=== PATIENT | female | born 2000 | race Caucasian/White ===

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

== ENCOUNTER 2020-04-02 07:22 | Inpatient (IN) ==
[2020-04-02] MEDS ORDERED: OXYTOCIN 30 UNITS/500 ML BAG IV PRN ×3 (07:37→18:59)
--- NOTE | 2020-04-02 07:56 | History & Physical Report ---
Date of Service April 02, 2020 Assessment & Plan (1) Encounter for induction of labor: Mary Kate is a 20yo at 40w 0d presenting for a planned post-dates IOL - admit to L&D - begin maintenance IV fluids - begin IV Pitocin drip - we will continue her Keppra 500mg, PO, BID - pain plan: epidural - anticipate vaginal delivery History of Present Illness Primary Care Provider: Gorge Valdovinos DO Mary Kate is a 20 yo at 40w 0d ( dated via U/S), here for planned post-dates IOL. Mary Kate developed a new onset seizure disorder at 24 weeks gestation, which was initially diagnosed at [facility]. She was started on Keppra 500mg, BID and has not had any recurrent seizures since the initial episode. Blood pressures, urine and all additional lab work-up was benign, thus her seizure were felt to not be consistent with pre-eclampsia. No other complications with this . Only other medication is PNV. She came to the labor and delivery last night, at which time she had a sharma balloon catheter was placed. It fell out shortly before coming to the unit this morning. She has been attending OB appointments. She is having occasional contractions. She is feeling movement. No vaginal bleeding. No fluid loss. Labs Blood type: A + Antibody Screen: neg H .6 Hct: 38.1 Plt: 132 Rubella: immune VDRL/RPR: non-reactive Gonorrhea: neg Chlamydia: neg GBS: neg HIV: non-reactive HbsAq: neg Glucose Tolerance x2: initial 50g test neg, second 50g test elevated Allergies Allergy/AdvReac Type Severity Reaction Status Date / Time sulfamethoxazole Allergy Verified 03/29/20 13:30 [From Bactrim] trimethoprim [From Bactrim] Allergy Verified 03/29/20 13:30 Home Medications Home Medications Medication Instructions Recorded Confirmed Type breast pump #1 ea 03/06/20 03/29/20 Rx levetiracetam [Keppra] 500 mg PO BID 04/01/20 04/02/20 History vit-iron fum-folic ac 1 tab PO DAILY 04/01/20 04/02/20 History [ Vitamin] Patient History Medical History Encounter for anatomic survey Seizure disorder during Stomach ulcer Varicella vaccine Surgical History S/P wisdom tooth extraction Family History Father Hypertension Liver disease Sister Kidney stone Mother Multiple gestation Social History Preferred Language: Citizen Of [place] Communication Ability: Effective Enologist Required: No Beliefs That Will Affect Care: None marital status: Single marital status details: CHERELLE English (23) [phone] Current Living Situation: Spouse current occupational status: student current occupation: student @ [employer] [place] Other Information That Helps Us Care for You: No Feels Safe at Home: Yes Safety Concerns: Feels Safe At This Time Smoking Status: Never smoker Do You Dip or Chew Tobacco: No ; Second Hand Exposure: No ; Tobacco Cessation Education Requested by Patient: No Hx Alcohol Use: No Hx Substance Use: No Review of Systems no fever, no chills and no sweats no worsening vision no cough and no dyspnea no chest pain, no palpitations and no calf pain no nausea, no vomiting, no constipation and no diarrhea/loose stools no dysuria and no urinary frequency Physical Exam Constitutional: WD/WN, vitals as above Eyes: + anicteric sclerae Neck: normal visual inspection Respiratory: normal respiratory effort, lungs clear to auscultation does not use accessory muscles Auscultation: no crackles, no rales, no wheezes and no pleural rub Cardiovascular: Rate/Rhythm: regular rate and regular rhythm Heart Sounds: normal S1 and normal S2; no gallop, no murmur and no cardiac rub Gastrointestinal (Abdomen): Gravid. Uterus at term; + heart tones; vertex position. EFW 6-7 lbs Neurologic: awake; no focal motor deficits Psychiatric: A+Ox3, euthymic affect Genitourinary: OB Exam Monitor Tracing: + external FHT monitor used Cervical Exam: 4 cm/75% effacement/-2 station, soft and posterior Results & Data Vital Signs (Past 12 Hours) Vital Signs Pulse BP 04/02/20 07:38 108 H 130/78 Monitoring External Monitor Baseline HR: 140 bpm Variability: moderate Accelerations: 2 in 20 min Decelerations: none Tocodynamometer Contractions: occurring irregularly on monitor Supervising Physician Co-Signing Physician Notes Patient evaluated and agree with the above findings and plan. Resident Activity Tracking Resident Involvement: Resident Care Provided Care Provided: Adult [facility] Medicine
[2020-04-02 07:58] LABS: Hematocrit (blood only) 38.1 % (37-47); Hemoglobin 12.6 g/dL (12.0-16.0); Mean Corpuscular Hemoglobin 31.3 pg (25-34); Mean Corpuscular Volume 94.8 fL (80-100); Mean Platelet Volume 11.7 fL (7.4-10.4); Platelet Count 132 K/uL (130-400); RDW Standard Deviation 48.7 fL (36.4-46.3); Red Blood Count 4.02 M/uL (4.2-5.4); White Blood Count 9.32 K/uL (4.8-10.8)
[2020-04-02 08:01] LABS: Mean Corpuscular Hgb Conc 33.1 g/dL (32-36)
[2020-04-02] MEDS: LACTATED RINGER'S 1,000 ML IV PRN ×3 (08:44→16:33)
[2020-04-02] MEDS: levETIRAcetam 500 MG TAB PO SCH ×2 (09:13→21:06)
[2020-04-02] MEDS ORDERED: ePHEDrine sulfate 50 MG/ML AMP ONE (10:46)
[2020-04-02] MEDS ORDERED: BUPIVACAINE 0.25% 30 ML VIAL ONE (10:46)
[2020-04-02] MEDS ORDERED: fentaNYL citrate 100 MCG/2 ML VIAL ONE (10:46)
[2020-04-02] MEDS ORDERED: fentaNYL 2MCG/ML ROPIV 1.25MG/ML 100 ML BAG EPI ONE (10:47)
[2020-04-02] MEDS ORDERED: fentaNYL 2MCG/ML ROPIV 1.25MG/ML 100 ML BAG EPI PRN (11:38)
[2020-04-02] MEDS ORDERED: NALBUPHINE HCL INJ 10 MG/ML AMP IV PRN (11:38)
[2020-04-02] MEDS ORDERED: DiphenhydrAMINE HCL 50 MG/ML VIAL IV PRN (11:38)
[2020-04-02] MEDS ORDERED: ePHEDrine sulfate 50 MG/ML AMP IV PRN (11:38)
[2020-04-02] MEDS ORDERED: ONDANSETRON INJ 2 MG/ML 2 ML VIAL IV PRN (11:38)
[2020-04-02] MEDS ORDERED: NALOXONE HCL 0.4 MG/1 ML VIAL/CARP IV PRN (11:38)
[2020-04-02] MEDS ORDERED: NALOXONE HCL 1 MG in SODIUM CHLORIDE 0.9% 1000ML 1,000 ML IV PRN (11:38)
--- NOTE | 2020-04-02 11:48 | Anesthesiology Consultation ---
Date of Service April 02, 2020 Assessment & Plan Chart Review Chart Review: Patient NOT seen in Pre Admission Testing and Acceptable Risk for Labor Epidural Consults Requested none ASA ASA2 Proposed Anesthesia Anesthesia Type: Labor Epidural and CSE Risk / Benefits Reviewed With: PT / POA / Parent / Guardian, Accepts Plan and Informed Consent Obtained History Height/Weight Height: 5 ft 2 in Weight: 79.832 kg Allergies Allergy/AdvReac Type Severity Reaction Status Date / Time sulfamethoxazole Allergy Verified 03/29/20 13:30 [From Bactrim] trimethoprim [From Bactrim] Allergy Verified 03/29/20 13:30 Medications Home Medications Medication Instructions Recorded Confirmed Last Taken breast pump #1 ea 03/06/20 03/29/20 Unknown levetiracetam [Keppra] 500 mg PO BID 04/01/20 04/02/20 04/01/20 21:00 vit-iron fum-folic ac 1 tab PO DAILY 04/01/20 04/02/20 04/01/20 21:00 [ Vitamin] Active Medications Generic Name Dose Route Start Last Admin Trade Name Dariuszq PRN Reason Stop Dose Admin Lactated Ringer's 1,000 mls @ 125 mls/hr 04/02/20 07:37 04/02/20 11:40 Lr IV 04/04/20 07:36 Infused .Q8H PRN Infusion L&D Protocol Protocol Oxytocin 30 units in 500 mls @ 6 mls/hr 04/02/20 07:41 04/02/20 10:15 Pitocin IV 04/04/20 07:40 0.36 units/hr .Q24H PRN 6 mls/hr Labor Induction/Augmentation Titration Protocol 0.36 UNITS/HR Levetiracetam 500 mg 04/02/20 09:00 04/02/20 09:13 Keppra PO 05/02/20 08:59 500 mg BID GIORGIO Administration NPO Date Last Intake of Fluids: 04/02/20 Time Last Intake of Fluids: 11:00 Date Last Intake of Solids: 04/02/20 Time Last Intake of Solids: 09:00 Past Medical History Medical History Encounter for anatomic survey Seizure disorder during Stomach ulcer Varicella vaccine Exercise / Class Metabolic Activity II 4-5 Yardwork/Stairs/Walk up hill Past Family History Family History Father Hypertension Liver disease Sister Kidney stone Mother Multiple gestation Past Surgical History Surgical History S/P wisdom tooth extraction Past Anesthesia History No Hx of Anesthesia Complications and No Family Hx of Anesthesia Complications History of PONV No Hx of PONV and No Hx of Motion Sickness Social History Smoking Status: Never smoker Do You Dip or Chew Tobacco: No Hx Alcohol Use: No Hx Substance Use: No Review of Systems no chest pain or sob Physical Exam Vital Signs Last Vital Signs Temp 36.9 C 04/02/20 07:54 Pulse 99 H 04/02/20 11:44 Resp 20 04/02/20 07:54 BP 134/77 04/02/20 11:37 Pulse Ox 98 04/02/20 11:44 ENMT Mouth: no TMJ abnormality Thyromental Distance: > or= 3.5 Finger Breadths Mallampati Class: II Neck normal visual inspection Respiratory normal respiratory effort Auscultation: lungs clear to auscultation bilaterally Cardiovascular Rate/Rhythm: regular rate and regular rhythm Musculoskeletal Spine: normal cervical ROM Neurologic moves all extremities Psychiatric Orientation: alert and oriented x 3 Testing Laboratory Results 04/02/20 07:47
--- NOTE | 2020-04-02 12:28 | Labor Progress Brief Note ---
Date of Service April 02, 2020 Subjective Reason For Note: Routine Evaluation Assessment & Plan (1) Supervision of normal intrauterine in primigravida: Cat 1 Progressing, Oxytocin/AROM epidural in place (2) Encounter for induction of labor: Physical Exam Genitourinary: OB Exam Abdomen: + vertex Manual OB Exam: + cervical dilation 5 cm, + cervical effacement 80%, + station -2 and + amniotic fluid bloody OB Exam Monitor Tracing: + external FHT monitor used, + external uterine monitor used, + category I and + normal FHT variability; no early decelerations present, no late decelerations present and no variable decelerations Results & Data Vital Signs (Past 12 Hours) Vital Signs Temp Pulse Resp BP Pulse Ox 04/02/20 12:24 106 H 98 04/02/20 12:23 93 H 101/57 L 04/02/20 12:21 100 H 107/59 L 04/02/20 12:19 96 H 96 04/02/20 12:18 106 H 111/62 04/02/20 12:14 107 H 106/60 96 04/02/20 12:11 104 H 103/62 04/02/20 12:09 97 H 98 04/02/20 12:08 100 H 104/58 L 04/02/20 12:04 104 H 110/72 98 04/02/20 12:02 105 H 109/78 04/02/20 11:59 99 H 97 04/02/20 11:58 110 H 123/71 04/02/20 11:56 106 H 130/72 04/02/20 11:54 116 H 96 04/02/20 11:49 104 H 98 04/02/20 11:44 99 H 98 04/02/20 11:39 95 H 97 04/02/20 11:37 87 134/77 04/02/20 11:34 93 H 133/81 97 04/02/20 10:36 85 117/76 04/02/20 09:36 85 112/67 04/02/20 08:36 92 H 128/75 04/02/20 07:54 36.9 C 108 H 20 130/78 04/02/20 07:38 108 H 130/78 Coding Level of Care Code None Diagnoses Supervision of normal intrauterine in primigravida Z34.00 Encounter for induction of labor Z34.90
[2020-04-02] MEDS ORDERED: METHYLERGONOVINE MALEATE 0.2 MG/ML AMP ONE (18:27)
[2020-04-02] MEDS ORDERED: miSOPROStoL 200 MCG TAB ONE (18:27)
[2020-04-02] MEDS ORDERED: SUPERCREAM 0.870% 15 GM JAR EXT PRN (18:59)
[2020-04-02] MEDS ORDERED: HYDROCORTISONE ACETATE 25 MG SUPP PR PRN (18:59)
[2020-04-02] MEDS ORDERED: DIPHTHERIA/TETANUS/PERTUSSIS 0.5 ML SYR/VIAL IM ONE (18:59)
[2020-04-02] MEDS ORDERED: BENZOCAINE 20% AER SPR 82.5 GM CAN EXT PRN (18:59)
[2020-04-02] MEDS ORDERED: ACETAMINOPHEN 325 MG TAB PO PRN (18:59)
[2020-04-02] MEDS ORDERED: bisacodyL 10 MG SUPP PR PRN (18:59)
[2020-04-02] MEDS: DOCUSATE SODIUM 100 MG CAP PO SCH (21:06)
[2020-04-02] MEDS: IBUPROFEN 600 MG TAB PO PRN (21:06)
--- NOTE | 2020-04-02 21:06 | Anesthesia Procedure Note ---
Date of Service April 02, 2020 Anesthesia Post Epidural Note Vital Signs Vital Signs: Temp Pulse Resp BP Pulse Ox 37.1 C 115 H 18 127/60 97 04/02/20 18:50 04/02/20 21:06 04/02/20 20:20 04/02/20 21:06 04/02/20 18:50 Notes Mental Status: alert / awake / arousable and participated in evaluation Nausea / Vomiting: adequately controlled Pain: adequately controlled Airway Patency, RR, SpO2: stable & adequate BP & HR: stable & adequate Hydration State: stable & adequate Neuraxial Anesthesia: was administered and sensory block is resolving Anesthetic Complications: no major complications apparent and Pt Satisfied with anesthetic care Epidural: Removed without complications and With tip intact
--- NOTE | 2020-04-02 21:37 | Delivery Summary ---
DATE OF OPERATION: 04/02/2020 PROCEDURE: Normal spontaneous vaginal delivery with second-degree perineal laceration repair and right labial laceration repair. SURGEON: Errol Marie MD PREOPERATIVE DIAGNOSES: 1. Single intrauterine at 40 weeks gestational age. 2. History of seizure disorder. POSTOPERATIVE DIAGNOSES: 1. Single intrauterine at 40 weeks gestational age. 2. History of seizure disorder. 3. Status post delivery. ESTIMATED BLOOD LOSS: 500 mL. DRAINS: Straight cath urine output 400 mL via straight catheterization. COMPLICATIONS: None. FINDINGS: A viable with weight and Apgars pending. INDICATIONS: The patient is a 20-year-old G1, P0, admitted at 40 weeks 0 days gestational age for elective induction of labor. At first evaluation, the patient was found to be 4 cm dilated, 80% effaced, negative 2 station. She was started on oxytocin per regular protocol. She received an epidural for anesthesia and underwent artificial rupture of membranes. The patient continued to progress in labor well; however, she did at one occasion have several decels including one prolonged decel, and oxytocin was stopped one time, with tempo was later able to be restarted. The patient did progress in labor to complete-complete +2 station, at which time she felt the urge to push and pushed for just under an hour to achieve delivery. DESCRIPTION OF PROCEDURE: The patient progressed to 10 cm dilated, 100% effaced, positive 2 station, pushed over an intact perineum with epidural anesthesia and delivered a viable with weight and Apgars as noted above and the delivered in JULEE position, restituted to the left transverse. A body cord was noted which was delivered through, the body and shoulders quickly followed, was noted to have good tone, but was not crying initially at delivery, but during the one minute of delayed cord clamping became more vigorous with spontaneous cries. Cord was then double clamped and cut. was taken to the waiting nursery staff for further evaluation. Cord segment and cord blood were obtained. Attention was then turned to delivery of the placenta which was delivered intact, 3-vessel cord with gentle cord traction. On inspection of the perineum, vagina and cervix, there was noted to be second degree perineal laceration, a right labial laceration and a left periurethral laceration all repaired with 3-0 Vicryl, the perineal laceration was repaired in the traditional crown stitch. All other lacerations were repaired with interrupted stitch. The patient did receive 1 dose of Methergine and 1000 mcg of Cytotec for heavy bleeding. Needle, sponge and instrument counts were correct at the completion of the case and both mother and were stable in the immediate post-delivery period. I attest to the content of the Intraoperative Record and any orders documented therein. Any exception s are noted below.
[2020-04-03] MEDS: IBUPROFEN 600 MG TAB PO PRN ×4 (01:31→19:33)
[2020-04-03 05:50] LABS: Hematocrit (blood only) 34.1 % (37-47); Hemoglobin 11.4 g/dL (12.0-16.0); Mean Corpuscular Hemoglobin 31.8 pg (25-34); Mean Corpuscular Hgb Conc 33.4 g/dL (32-36); Mean Platelet Volume 11.6 fL (7.4-10.4); Platelet Count 130 K/uL (130-400); RDW Coefficient of Variation 14.1 % (11.5-14.5); RDW Standard Deviation 48.6 fL (36.4-46.3); Red Blood Count 3.59 M/uL (4.2-5.4); White Blood Count 12.41 K/uL (4.8-10.8)
--- NOTE | 2020-04-03 06:37 | Obstetrical Progress Note ---
Date of Service April 03, 2020 Assessment & Plan (1) Status post vaginal delivery: Mary Kate is a 20 yo on PPD 1 after at 40w - GBS -, Blood Type A+, Rubella immune - Vitals reviewed and WNL. - patient diagnosed with new seizure disorder at 24 weeks gestation (felt not to represent pre-eclampsia). Continuing Keppra 500mg BID. Monitoring BP closely, pressure have been normal. platelets normal at 130 today. - Hemoglobin reviewed: 11.4 - patient is doing clinically well Continue routine post- care - After discharge will have [address] Marie. Admission and Anticipated Discharge Date Admission Date: April 02, 2020 Supervising Physician Co-Signing Physician Notes Patient seen and evaluated and agree with the above findings and plan. Continue routine care Subjective Ambulation: ambulating normally Voiding: no voiding problems Passing Gas:: Yes Diet Tolerance:: regular diet Lochia:: Small Feeding Type:: breast feeding bottom is somewhat sore, improved with motrin Review of Systems Constitutional: no fever, no chills and no sweats Eyes: no worsening vision Respiratory: no cough and no dyspnea Cardiovascular: no chest pain, no palpitations, no edema and no calf pain Gastrointestinal: no nausea and no vomiting Genitourinary: no dysuria and no urinary frequency Neurologic: no headache(s) Physical Exam Constitutional: WD/WN, vitals as above no acute distress Respiratory: normal respiratory effort, lungs clear to auscultation does not use accessory muscles Auscultation: no crackles, no rales, no rhonchi, no wheezes and no pleural rub Cardiovascular: Rate/Rhythm: regular rate and regular rhythm Heart Sounds: normal S1 and normal S2; no gallop, no murmur and no cardiac rub Extremities: no calf tenderness and no pedal edema Gastrointestinal (Abdomen): Inspection/Auscultation: normal bowel sounds; abdomen not distended Percussion/Palpation: abdomen soft Genitourinary: Uterus: fundus firm, palpable 2 cm below the umbilicus Results & Data ([facility]) Vital Signs (Past 12 Hours) Vital Signs Temp Pulse Pulse Pulse Resp BP BP 04/03/20 04:05 36.7 C 80 18 121/76 04/02/20 23:40 36.9 C 92 H 16 113/67 04/02/20 21:35 37.0 C 112 H 18 131/79 04/02/20 21:06 115 H 127/60 04/02/20 20:50 37.1 C 118 H 18 117/75 04/02/20 20:36 100 H 120/69 04/02/20 20:21 100 H 100/77 04/02/20 20:20 18 04/02/20 20:06 101 H 112/57 L 04/02/20 19:51 103 H 166/76 H 04/02/20 19:50 18 04/02/20 19:36 103 H 119/58 L 04/02/20 19:35 18 04/02/20 19:20 18 04/02/20 19:08 90 119/68 04/02/20 19:05 18 04/02/20 18:53 103 H 128/79 04/02/20 18:52 118 H 130/68 04/02/20 18:50 37.1 C 110 H 18 128/79 04/02/20 18:45 97 H 04/02/20 18:40 113 H 04/02/20 18:39 104 H 130/64 Pulse Ox 04/03/20 04:05 98 04/02/20 23:40 97 04/02/20 21:35 96 04/02/20 21:06 04/02/20 20:50 04/02/20 20:36 04/02/20 20:21 04/02/20 20:20 04/02/20 20:06 04/02/20 19:51 04/02/20 19:50 04/02/20 19:36 04/02/20 19:35 04/02/20 19:20 04/02/20 19:08 04/02/20 19:05 04/02/20 18:53 04/02/20 18:52 04/02/20 18:50 97 04/02/20 18:45 96 04/02/20 18:40 96 04/02/20 18:39 Resident Activity Tracking Resident Involvement: Resident Care Provided Care Provided: OB Delivery
[2020-04-03] MEDS: DOCUSATE SODIUM 100 MG CAP PO SCH ×2 (08:24→20:35)
[2020-04-03] MEDS: levETIRAcetam 500 MG TAB PO SCH ×2 (08:24→20:35)
[2020-04-03] MEDS: PRENATAL VITAMIN 1 TAB PO SCH (08:24)
[2020-04-03] MEDS ORDERED: bisacodyL 5 MG TABEC PO SCH (20:00)
[2020-04-04] MEDS: IBUPROFEN 600 MG TAB PO PRN (04:47)
[2020-04-04 06:20] LABS: Hematocrit (blood only) 32.8 % (37-47); Hemoglobin 10.9 g/dL (12.0-16.0)
--- NOTE | 2020-04-04 06:21 | Obstetrical Progress Note ---
Date of Service April 04, 2020 Assessment & Plan (1) Status post vaginal delivery: Mary Kate is a 20 yo on PPD 2 after at 40w - GBS -, Blood Type A+, Rubella immune - Vitals reviewed and WNL. - patient diagnosed with new seizure disorder at 24 weeks gestation (felt not to represent pre-eclampsia). She will continue on Keppra 500mg BID until her follow-up with neurology in September 2020. - patient is doing clinically well Discharge instructions reviewed. Ready for discharge. - After discharge will have [address] Marie. Admission and Anticipated Discharge Date Admission Date: April 02, 2020 Supervising Physician Co-Signing Physician Notes Resident Physician Supervision Note: I interviewed and examined the patient. Discussed with Dr. smyth and agree with findings and plan as documented in the note. Any exceptions or clarifications are listed here: Doing well. Plan d/c home. To call her neurologist upon d/c to see about f/u and her keppra dose, will d/c on 500mg as she had been doing. Instructions given. Documented By: Stacey Saunders MD, [id number] Subjective Ambulation: ambulating normally Voiding: no voiding problems Passing Gas:: Yes Diet Tolerance:: regular diet Lochia:: Small Feeding Type:: breast feeding Review of Systems Constitutional: no fever, no chills and no sweats Eyes: no worsening vision Respiratory: no cough and no dyspnea Cardiovascular: no chest pain, no palpitations, no edema and no calf pain Gastrointestinal: no nausea and no vomiting Genitourinary: no dysuria and no urinary frequency Neurologic: no headache(s) Physical Exam Constitutional: WD/WN, vitals as above no acute distress Eyes: + anicteric sclerae Neck: normal visual inspection Respiratory: normal respiratory effort, lungs clear to auscultation does not use accessory muscles Auscultation: no crackles, no rales, no rhonchi, no wheezes and no pleural rub Cardiovascular: Rate/Rhythm: regular rate and regular rhythm Heart Sounds: normal S1 and normal S2; no gallop, no murmur and no cardiac rub Extremities: no calf tenderness and no pedal edema Gastrointestinal (Abdomen): Inspection/Auscultation: normal bowel sounds; abdomen not distended Percussion/Palpation: abdomen soft Neurologic: awake; no focal motor deficits Psychiatric: A+Ox3, euthymic affect Genitourinary: Uterus: fundus firm, palpable 1 cm below the umbilicus Results & Data ([facility]) Vital Signs (Past 12 Hours) Vital Signs Temp Pulse Resp BP Pulse Ox 04/03/20 23:20 36.6 C 84 16 122/79 98 Resident Activity Tracking Resident Involvement: Resident Care Provided Care Provided: OB Delivery
[2020-04-04] MEDS: DOCUSATE SODIUM 100 MG CAP PO SCH (08:30)
[2020-04-04] MEDS: PRENATAL VITAMIN 1 TAB PO SCH (08:30)
[2020-04-04] MEDS: levETIRAcetam 500 MG TAB PO SCH (08:30)
== END 2020-04-04 12:50 | disposition home or self-care (01) | DRG 807 ==
LOC: 4S1 07:27 → 4S2 21:47

== ENCOUNTER 2023-11-18 16:30 | Inpatient (IN) ==
[2023-11-18] MEDS ORDERED: LIDOCAINE 1% LOCAL 20 ML VIAL INFIL PRN (17:17)
[2023-11-18] MEDS ORDERED: PENICILLIN GK 6 MU in DEXTROSE 5% 250 ML IV STA (17:17)
[2023-11-18] MEDS ORDERED: OXYTOCIN 30 UNITS/NSS 30 UNITS/500 ML BAG IV PRN ×2 (17:17)
--- NOTE | 2023-11-18 17:23 | History & Physical Report ---
Date of Service November 18, 2023 Assessment & Plan (1) Non-reassuring cardiotocographic tracing: Plan: Patient agreeable to induction of labor per ACOG recs, based on her testing at the office today. PCN for GBS Pitocin for IOL Epidural on request History of Present Illness Chief Complaint: Low BPP Primary Care Provider: Gorge Valdovinos, DO 23yo @ 40wk0d with SIUP, presents to L&D from office where she was seen earlier today. She was found to have variable decels on NST, and then sent for BPP, with no points for breathing therefore a total score of 6/10. Given the patient is full term, per ACOG, delivery is indicated, and patient accepts that recommendation. No painful ctx, no LOF, no VB, has good FM. Preg c/b maternal seizure disorder on lamictal, without recent seizure activity. Anxiety/Depression treated by Celexa. She is also GBS positive. Allergies Allergy/AdvReac Type Severity Reaction Status Date / Time sulfamethoxazole Allergy Hives Verified 11/18/23 14:41 [From Bactrim] trimethoprim [From Bactrim] Allergy Verified 11/18/23 14:41 Home Medications Medication Instructions Recorded Confirmed Type citalopram [Celexa] PO 11/19/22 11/18/23 History folic acid 1 mg tablet 3 mg PO DAILY 03/23/23 11/18/23 History prenat.vits,beba,hae-tijp-oqckd 1 tab PO DAILY 03/23/23 11/18/23 History promethazine 12.5 mg tablet 12.5 mg PO Q6H PRN nausea and 04/16/23 11/18/23 Rx vomiting #20 tabs ondansetron HCl 4 mg tablet 4 mg PO Q6H PRN nausea and 04/30/23 11/18/23 Rx vomiting #20 tabs promethazine 25 mg rectal 25 mg OK Q6H PRN sedation #12 ea 05/18/23 11/18/23 Rx suppository breast pump #1 ea 11/05/23 11/18/23 Rx lamotrigine 150 mg tablet 200 mg PO BID 11/05/23 11/18/23 History (Lamictal) Patient History Medical History Encounter for induction of labor Seizure disorder during Stomach ulcer Varicella vaccine Encounter for anatomic survey Supervision of normal intrauterine in primigravida Surgical History History of hip surgery Status post vaginal delivery S/P wisdom tooth extraction Family History Father Hypertension Liver disease Diabetes Sister Kidney stone Mother Multiple gestation Family/Other Lupus Denies family history of Ovarian cancer Prostate cancer Myocardial infarction Breast cancer Colorectal cancer Social History Smoking Status: Never smoker Second Hand Exposure: No; Do You Dip or Chew Tobacco: No; Tobacco Cessation Education Requested by Patient: No Hx Alcohol Use: No Hx Substance Use: No Preferred Language: Sinhala Communication Ability: Effective Gas Or Water Meter Installer Required: No Beliefs That Will Affect Care: None marital status: marital status details: ARIEHector Angelo English (27) [phone] Current Living Situation: Spouse Current Living Situation Comment: Ari- , Ludy- daughter current occupational status: employed current occupation: [employer] Other Information That Helps Us Care for You: No Feels Safe at Home: Yes Safety Concerns: Feels Safe At This Time Assistive Devices: None Physical Exam Constitutional: WD/WN, vitals as above Eyes: PERRL, conjunctivae normal, anicteric sclerae ENMT: Ears: no hearing impairment and no external ear abnormality Nose: no external nose abnormality Mouth: no lip abnormality Neck: trachea midline, no thyromegaly normal visual inspection Respiratory: normal respiratory effort and able to speak in complete sentences; no respiratory distress and no labored breathing Cardiovascular: Rate/Rhythm: regular rate and regular rhythm Extremities: no edema Chest (Breasts): Additional Comments: clothed observation, appears normal age-appropriate breast development Musculoskeletal: Head/Neck/Chest: normocephalic and head atraumatic Extremities: extremities normal to inspection Skin: no rashes, warm and dry Neurologic: PERRL, EOMI, accommodation nl, no face palsy, no dysarthria awake Motor/Sensory: normal movement Psychiatric: A+Ox3, euthymic affect Genitourinary: FHT are Cat 1 on arrival, 120 mod lasha +acc -dec [place] with some LA waves, some ctx not appreciated by patient. 2/75/-2/soft/post EFW 6-7 Results & Data Vital Signs (Past 12 Hours) Vital Signs Temp Pulse Resp BP 11/18/23 16:43 97 H 120/75 11/18/23 16:39 98.6 F 97 H 18 120/75 Coding Level of Care Code None Diagnoses Non-reassuring cardiotocographic tracing O36.8390
[2023-11-18 17:48] LABS: Hematocrit (blood only) 33.8 % (37.0-47.0); Hemoglobin 11.1 g/dl (12.0-16.0); Mean Corpuscular Hemoglobin 28.4 pg (25.0-34.0); Mean Corpuscular Hgb Conc 32.8 g/dL (32.0-36.0); Mean Corpuscular Volume 86.4 fL (80.0-100.0); Mean Platelet Volume 11.3 fL (9.4-12.4); Platelet Count 184 K/uL (130-400); RDW Coefficient of Variation 15.5 % (11.5-14.5); RDW Standard Deviation 48.5 fL (36.4-46.3); Red Blood Count 3.91 M/uL (4.20-5.40); White Blood Count 8.63 K/ul (4.8-10.8)
[2023-11-18] MEDS: LACTATED RINGER'S 1,000 ML IV PRN ×2 (17:56→22:59)
[2023-11-18] MEDS: lamoTRIgine 100 MG TAB PO SCH (19:59)
[2023-11-18] MEDS ORDERED: PENICILLIN GK 3 MU in DEXTROSE 5% 100 ML IV PRN (20:17)
[2023-11-18] MEDS ORDERED: fentaNYL citrate PF 100 MCG/2 ML VIAL ONE (22:15)
[2023-11-18] MEDS ORDERED: fentANYL 2 MCG/ML BUPIVacaine 0.125%-NSS 100ML BAG ONE (22:15)
[2023-11-18] MEDS ORDERED: SODIUM CHLORIDE 0.9% PF INJ 10 ML VIAL ONE (22:15)
[2023-11-18] MEDS ORDERED: ePHEDrine sulfate 50 MG/ML AMP ONE (22:15)
[2023-11-18] MEDS ORDERED: LIDOCAINE 2%/EPINEPHRINE 1:200,000 20 ML PF ONE (22:16)
[2023-11-18] MEDS ORDERED: BUPIVACAINE 0.25% PF 30 ML VIAL ONE (22:16)
[2023-11-18] MEDS ORDERED: BUPIVACAINE 0.25% PF 30 ML VIAL EPI STA (22:28)
[2023-11-18] MEDS ORDERED: fentaNYL citrate PF 100 MCG/2 ML VIAL EPI STA (22:28)
[2023-11-18] MEDS ORDERED: SODIUM CHLORIDE 0.9% PF INJ 10 ML VIAL EPI STA (22:28)
[2023-11-18] MEDS ORDERED: fentANYL 2 MCG/ML BUPIVacaine 0.125%-NSS 100ML BAG EPI PRN (22:28)
[2023-11-18] MEDS ORDERED: ePHEDrine sulfate 50 MG/ML AMP IV PRN (22:28)
[2023-11-18] MEDS ORDERED: NALOXONE HCL 1 MG in SODIUM CHLORIDE 0.9% 1,000 ML IV PRN (22:28)
[2023-11-18] MEDS ORDERED: NALOXONE HCL 0.4 MG/1 ML VIAL/CARP IV PRN (22:28)
[2023-11-18] MEDS ORDERED: ROPIVACAINE 0.5% PF 5 MG/ML 20 ML VIAL EPI PRN (22:28)
[2023-11-18] MEDS ORDERED: LIDOCAINE 2% MPF LOCAL 5 ML VIAL EPI PRN (22:28)
[2023-11-18] MEDS ORDERED: fentaNYL citrate PF 100 MCG/2 ML VIAL EPI PRN (22:28)
[2023-11-18] MEDS ORDERED: BUPIVACAINE 0.25% PF 30 ML VIAL EPI PRN (22:28)
[2023-11-18] MEDS ORDERED: LIDOCAINE 2%/EPINEPHRINE 1:200,000 20 ML PF EPI STA (22:28)
[2023-11-18] MEDS ORDERED: diphenhydrAMINE 50 MG/ML VIAL IV PRN (22:28)
[2023-11-18] MEDS ORDERED: SODIUM CHLORIDE 0.9% PF INJ 10 ML VIAL EPI PRN (22:28)
[2023-11-18] MEDS ORDERED: NALBUPHINE HCL 5 MG in SYRINGE 0 ML IV PRN (22:28)
--- NOTE | 2023-11-18 22:30 | Anesthesiology Consultation ---
Date of Service November 18, 2023 Assessment & Plan (1) Encounter for pre-operative examination: Chart Review Chart Review: Patient NOT seen in Pre Admission Testing and Acceptable Risk for Labor Epidural Consults Requested none History Height/Weight Height: 5 ft 2 in Weight: 83.007 kg Allergies Allergy/AdvReac Type Severity Reaction Status Date / Time sulfamethoxazole Allergy Hives Verified 11/18/23 14:41 [From Bactrim] trimethoprim [From Bactrim] Allergy Verified 11/18/23 14:41 Medications Home Medications Medication Instructions Recorded Confirmed Last Taken folic acid 1 mg tablet 3 mg PO DAILY 03/23/23 11/18/23 Unknown prenat.vits,beba,[id number] 1 tab PO DAILY 03/23/23 11/18/23 Unknown breast pump #1 ea 11/05/23 11/18/23 Unknown lamotrigine 150 mg tablet 200 mg PO BID 11/05/23 11/18/23 11/18/23 08:00 (Lamictal) Active Medications Generic Name Dose Route Start Last Admin Trade Name Freq PRN Reason Stop Dose Admin Oxytocin 30 units in 500 mls @ 14 mls/hr 11/18/23 17:17 11/18/23 21:30 Pitocin 30 Units/Nss IV 11/20/23 17:16 0.84 units/hr .Q24H PRN 14 mls/hr Labor Induction/Augmentation Titration Protocol 0.84 UNITS/HR Lactated Ringer's 1,000 mls @ 125 mls/hr 11/18/23 17:17 11/18/23 17:56 Lr IV 11/20/23 17:16 125 mls/hr .Q8H PRN Administration L&D Protocol Protocol Penicillin G Potassium 3 mu/ 106 mls @ 100 mls/hr 11/18/23 20:17 11/18/23 21:51 Dextrose IV 11/28/23 20:16 100 mls/hr Q4H PRN Administration GBS(+) Until Delivery Lamotrigine 300 mg 11/18/23 21:00 11/18/23 19:59 Lamotrigine 100 Mg Tab PO 12/18/23 20:59 300 mg HS GIORGIO Administration Protocol Past Medical History Medical History (Updated 11/18/23 @ 22:30 by Charles Gomez MD) Encounter for pre-operative examination Encounter for induction of labor Seizure disorder during Stomach ulcer Varicella vaccine Encounter for anatomic survey Supervision of normal intrauterine in primigravida Exercise / Class Metabolic Activity II 4-5 Yardwork/Stairs/Walk up hill Past Family History Family History Father Hypertension Liver disease Diabetes Sister Kidney stone Mother Multiple gestation Family/Other Lupus Denies family history of Ovarian cancer Prostate cancer Myocardial infarction Breast cancer Colorectal cancer Past Surgical History Surgical History History of hip surgery Status post vaginal delivery S/P wisdom tooth extraction Past Anesthesia History No Hx of Anesthesia Complications and No Family Hx of Anesthesia Complications Social History Smoking Status: Never smoker Do You Dip or Chew Tobacco: No Hx Alcohol Use: No Hx Substance Use: No Physical Exam Vital Signs Last Vital Signs Temp 36.9 C 11/18/23 18:56 Pulse 92 H 11/18/23 22:48 Resp 18 11/18/23 18:56 BP 121/77 11/18/23 22:48 Pulse Ox 99 11/18/23 22:48 Testing Laboratory Results 11/18/23 17:29
--- NOTE | 2023-11-19 01:42 | Delivery Summary ---
Vaginal Delivery Summary Date of Service November 19, 2023 Vaginal Delivery Summary DIAGNOSES: 1. Fisher intrauterine at 40w1d gestation. 2. Induction of labor indicated by BPP 05/02 3. Group B Streptococcus Pos. PROCEDURE: Spontaneous vaginal delivery and repair of second degre laceration. SURGEON: Neela Banda MD. SECTION CUTTER: None. ESTIMATED BLOOD LOSS: 300 mL. COMPLICATIONS: None. PLACENTA: Spontaneous and intact with a 3-vessel cord. DISPOSITION: Stable to labor and delivery. DESCRIPTION: The patient pushed well and brought the head to in DOA position. The infant's head was allowed to deliver with contraction force and no further active pushing, with the perineum protected during this time. There was no nuchal cord. The right shoulder was anterior. The shoulders and body delivered without any difficulty, and the infant was placed on the maternal abdomen. It was vigorous and moving all extremities, and making respiratory efforts. The cord was doubly clamped by the MD and then cut by the FOB. The placenta delivered spontaneously and was noted to be intact and with a 3VC. The cervix, vagina and perineum were examined and were found to have a second-degree laceration which was repaired in the usual manner. The fundus was firm and lochia minimal immediately after delivery. [facility] Vaginal Delivery Charge Vaginal Delivery Codes: 22240 global code for the antepartum, delivery, and post-
[2023-11-19] MEDS ORDERED: HYDROCORTISONE ACETATE 25 MG SUPP PR PRN (01:57)
[2023-11-19] MEDS ORDERED: DIPHTHERIA/TETANUS/PERTUSSIS Vaccine (Tdap, Age 7+yrs) 0.5mL SYR/VL IM ONE (01:57)
[2023-11-19] MEDS ORDERED: oxyCODONE/ACETAMINOPHEN 5mg/325mg TAB PO PRN (01:57)
[2023-11-19] MEDS ORDERED: ACETAMINOPHEN 325 MG TAB PO PRN (01:57)
[2023-11-19] MEDS ORDERED: BENZOCAINE 20% SPRY 85 APPLN/85 GM CAN EXT PRN (01:57)
--- NOTE | 2023-11-19 07:23 | Anesthesia Procedure Note ---
Date of Service November 19, 2023 Anesthesia Post Epidural Note Vital Signs Vital Signs: Temp Pulse Resp BP Pulse Ox O2 Del Method 37.1 C 92 H 18 119/76 98 Room Air 11/19/23 04:15 11/19/23 04:15 11/19/23 04:15 11/19/23 04:15 11/19/23 04:15 11/19/23 04:15 Notes Mental Status: alert / awake / arousable and participated in evaluation Nausea / Vomiting: adequately controlled Pain: adequately controlled Airway Patency, RR, SpO2: stable & adequate BP & HR: stable & adequate Hydration State: stable & adequate Neuraxial Anesthesia: was administered and sensory block is resolving Anesthetic Complications: no major complications apparent Epidural: Removed without complications and With tip intact
[2023-11-19] MEDS: IBUPROFEN 600 MG TAB PO PRN ×3 (08:11→22:35)
[2023-11-19] MEDS: PRENATAL VITAMIN 1 TAB PO SCH (08:11)
[2023-11-19] MEDS: DOCUSATE SODIUM 100 MG CAP PO SCH ×2 (08:12→21:19)
[2023-11-19] MEDS: lamoTRIgine 100 MG TAB PO SCH ×2 (09:14→21:19)
[2023-11-19 23:34] VITALS: O2SAT 97
[2023-11-20 02:58] VITALS: RESP 16
--- NOTE | 2023-11-20 07:48 | Obstetrical Progress Note ---
Date of Service November 20, 2023 Assessment & Plan (1) Encounter for care and examination after delivery: satisfactory course ready for discharge today Subjective Ambulation: ambulating normally Voiding: no voiding problems Passing Gas:: Yes Diet Tolerance:: regular diet Lochia:: Small Feeding Type:: breast feeding Review of Systems All systems reviewed & are unremarkable except as noted in HPI & below Physical Exam Constitutional WD/WN, vitals as above Psychiatric A+Ox3, euthymic affect Genitourinary OB Exam Abdomen: + fundal height Fundus: + firm and + relation to umbilicus (2 below U) Results & Data Vital Signs (Past 12 Hours) Vital Signs Temp Pulse Resp BP Pulse Ox O2 Del Method 11/20/23 02:30 97.9 F 73 16 112/73 97 Room Air
[2023-11-20] MEDS: lamoTRIgine 100 MG TAB PO SCH (08:31)
[2023-11-20] MEDS: PRENATAL VITAMIN 1 TAB PO SCH (08:31)
[2023-11-20] MEDS: DOCUSATE SODIUM 100 MG CAP PO SCH (08:31)
[2023-11-20] MEDS: IBUPROFEN 600 MG TAB PO PRN (08:33)
[2023-11-20 08:50] LABS: Hematocrit (blood only) 31.7 % (37.0-47.0); Mean Corpuscular Hemoglobin 27.8 pg (25.0-34.0); Mean Corpuscular Hgb Conc 31.5 g/dL (32.0-36.0); Mean Corpuscular Volume 88.1 fL (80.0-100.0); Mean Platelet Volume 11.1 fL (9.4-12.4); Platelet Count 160 K/uL (130-400); RDW Coefficient of Variation 15.4 % (11.5-14.5); RDW Standard Deviation 49.3 fL (36.4-46.3); White Blood Count 6.75 K/ul (4.8-10.8)
[2023-11-20 08:58] VITALS: BP 122/80; PULSE 83; TEMP 98.1
[2023-11-20] MEDS ORDERED: bisacodyL 5 MG TABEC PO SCH (20:00)
[2023-11-21] MEDS ORDERED: bisacodyL 10 MG SUPP PR PRN
== END 2023-11-20 12:00 | disposition home or self-care (01) | DRG 806 ==
LOC: OPB 16:30 → 4S1 16:31 → 4E2 11-19 04:26

== ENCOUNTER 2025-05-23 11:37 | Inpatient (IN) ==
[2025-05-23] MEDS ORDERED: LIDOCAINE 1% LOCAL 20 ML VIAL INFIL PRN (11:51)
[2025-05-23] MEDS ORDERED: OXYTOCIN 30 UNITS/NSS 30 UNITS/500 ML BAG IV PRN (11:51)
[2025-05-23] MEDS: OXYTOCIN 30 UNITS/NSS 30 UNITS/500 ML BAG IV PRN (12:36)
[2025-05-23] MEDS: LACTATED RINGER'S 1,000 ML IV PRN (12:37)
[2025-05-23] MEDS: PENICILLIN GK 6 MU in DEXTROSE 5% 250 ML IV STA (12:37)
[2025-05-23 12:41] LABS: Hematocrit (blood only) 28.9 % (37.0-47.0); Hemoglobin 9.3 g/dl (12.0-16.0); Mean Corpuscular Hemoglobin 26.3 pg (25.0-34.0); Mean Corpuscular Volume 81.6 fL (80.0-100.0); Platelet Count 182 K/uL (130-400); RDW Standard Deviation 49.7 fL (36.4-46.3); Red Blood Count 3.54 M/uL (4.20-5.40); White Blood Count 8.64 K/ul (4.8-10.8)
[2025-05-23] MEDS: PENICILLIN GK 3 MU in DEXTROSE 5% 100 ML IV PRN (16:25)
[2025-05-23] MEDS ORDERED: NALOXONE HCL 1 MG in SODIUM CHLORIDE 0.9% 1,000 ML IV PRN (16:47)
[2025-05-23] MEDS ORDERED: NALBUPHINE HCL INJ 10 MG/ML AMP IV PRN (16:47)
[2025-05-23] MEDS ORDERED: SODIUM CHLORIDE 0.9% PF INJ 10 ML VIAL EPI PRN (16:47)
[2025-05-23] MEDS ORDERED: ONDANSETRON INJ 2 MG/ML 2 ML VIAL IV PRN (16:47)
[2025-05-23] MEDS ORDERED: diphenhydrAMINE 50 MG/ML VIAL IV PRN (16:47)
[2025-05-23] MEDS ORDERED: LIDOCAINE 2% MPF LOCAL 5 ML VIAL EPI PRN (16:47)
[2025-05-23] MEDS ORDERED: fentANYL 2 MCG/ML BUPIVacaine 0.125%-NSS 100ML BAG EPI PRN (16:47)
[2025-05-23] MEDS ORDERED: NALOXONE HCL 0.4 MG/1 ML VIAL/CARP IV PRN (16:47)
[2025-05-23] MEDS ORDERED: BUPIVACAINE 0.25% PF 30 ML VIAL EPI PRN (16:47)
[2025-05-23] MEDS ORDERED: ROPIVACAINE 0.5% PF 5 MG/ML 20 ML VIAL EPI PRN (16:47)
[2025-05-23] MEDS: fentANYL 2 MCG/ML BUPIVacaine 0.125%-NSS 100ML BAG ONE (16:58)
[2025-05-23] MEDS: LIDOCAINE 2%/EPINEPHRINE 1:200,000 20 ML PF ONE (17:01)
[2025-05-23] MEDS: BUPIVACAINE 0.25% PF 30 ML VIAL ONE (17:02)
--- NOTE | 2025-05-23 17:06 | Anesthesiology Consultation ---
Date of Service May 23, 2025 Assessment & Plan (1) Encounter for pre-operative examination: Chart Review Chart Review: Patient NOT seen in Pre Admission Testing and Acceptable Risk for Labor Epidural Consults Requested none History Height/Weight Height: 5 ft 3 in Weight: 78.018 kg Allergies Allergy/AdvReac Type Severity Reaction Status Date / Time sulfamethoxazole Allergy Hives Verified 05/22/25 13:29 [From Bactrim] trimethoprim [From Bactrim] Allergy Hives Verified 05/23/25 12:07 Medications Home Medications Medication Instructions Recorded Confirmed Last Taken prenat.vits,beba,[id number] 1 tab PO DAILY 03/23/23 05/23/25 05/23/25 07:00 lamotrigine 150 mg tablet 250 mg PO BID 11/05/23 05/23/25 05/23/25 07:00 (Lamictal) Active Medications Generic Name Dose Route Start Last Admin Trade Name Freq PRN Reason Stop Dose Admin Oxytocin 30 units in 500 mls @ 10 mls/hr 05/23/25 11:51 05/23/25 16:20 Pitocin 30 Units/Nss IV 05/25/25 11:50 0.6 units/hr .Q24H PRN 10 mls/hr Labor Induction/Augmentation Titration Protocol 0.6 UNITS/HR Lactated Ringer's 1,000 mls @ 125 mls/hr 05/23/25 11:51 05/23/25 16:29 Lr IV 05/25/25 11:50 999 mls/hr .Q8H PRN Infusion L&D Protocol Protocol Penicillin G Potassium 3 mu/ 106 mls @ 100 mls/hr 05/23/25 14:51 05/23/25 16:25 Dextrose IV 06/02/25 14:50 100 mls/hr Q4H PRN Administration GBS(+) Until Delivery Past Medical History Medical History Depression with anxiety Group B streptococcal infection during Seizure disorder during Last seizure >1 yr ago Stomach ulcer Varicella vaccine Past Family History Family History Father Hypertension Liver disease Diabetes Sister Kidney stone Mother Multiple gestation Family/Other Lupus Denies family history of Ovarian cancer Prostate cancer Myocardial infarction Breast cancer Colorectal cancer Past Surgical History Surgical History History of hip surgery Status post vaginal delivery S/P wisdom tooth extraction Social History Smoking Status: Never smoker Do You Dip or Chew Tobacco: No Hx Alcohol Use: No Hx Substance Use: No Physical Exam Vital Signs Last Vital Signs Temp 98.6 F 05/23/25 11:53 Pulse 84 05/23/25 17:02 Resp 20 05/23/25 15:30 BP 117/69 05/23/25 17:02 Pulse Ox 100 05/23/25 17:02 Testing Laboratory Results 05/23/25 12:22
[2025-05-23] MEDS: BUPIVACAINE 0.25% PF 30 ML VIAL EPI STA (18:37)
[2025-05-23] MEDS: SODIUM CHLORIDE 0.9% PF INJ 10 ML VIAL ONE (18:37)
[2025-05-23] MEDS: SODIUM CHLORIDE 0.9% PF INJ 10 ML VIAL EPI STA (18:37)
[2025-05-23] MEDS: LIDOCAINE 2%/EPINEPHRINE 1:200,000 20 ML PF EPI STA (18:37)
[2025-05-23] MEDS: lamoTRIgine 25 MG TAB PO SCH (20:35)
[2025-05-23] MEDS: lamoTRIgine 100 MG TAB PO SCH (20:35)
--- NOTE | 2025-05-23 22:11 | Delivery Summary ---
Vaginal Delivery Summary Date of Service May 23, 2025 Vaginal Delivery Summary DIAGNOSES: 1. Fisher intrauterine at 39w0d gestation. 2. Induction of Labor. 3. Group B Streptococcus Pos. PROCEDURE: Spontaneous vaginal delivery without laceration. SURGEON: Neela Banda MD. ELECTRONIC PARTS SALESPERSON: None. ESTIMATED BLOOD LOSS: 152 mL. COMPLICATIONS: None. PLACENTA: Spontaneous and intact with a 3-vessel cord. DISPOSITION: Stable to labor and delivery. DESCRIPTION: The patient pushed well and brought the head to in DOA position. The infant's head was allowed to deliver with contraction force and no further active pushing, with the perineum protected during this time. There was no nuchal cord. The left shoulder was anterior. The shoulders and body delivered without any difficulty, and the infant was placed on the maternal abdomen. It was vigorous and moving all extremities, and making respiratory efforts. The cord was doubly clamped by the MD and then cut by the FOB. The placenta delivered spontaneously and was noted to be intact and with a 3VC. The cervix, vagina and perineum were examined and were found to be without defect requiring repair. The fundus was firm and lochia minimal immediately after delivery. [facility] – [place] Vaginal Delivery Charge Vaginal Delivery Codes: 70706 global code for the antepartum, delivery, and post-
[2025-05-24] MEDS ORDERED: LACTATED RINGER'S 1,000 ML IV SCH (05:18)
[2025-05-24] MEDS ORDERED: OXYTOCIN 30 UNITS/NSS 30 UNITS/500 ML BAG IV PRN (05:18)
[2025-05-24] MEDS ORDERED: HYDROCORTISONE ACETATE 25 MG SUPP PR PRN (05:18)
[2025-05-24] MEDS ORDERED: BENZOCAINE 20% SPRY 85 APPLN/85 GM CAN EXT PRN (05:18)
[2025-05-24] MEDS ORDERED: DIPHTHER/TETAN/PERTUS Vaccine (Tdap, Adol/Adult) 0.5mL IM ONE (05:18)
[2025-05-24] MEDS: ACETAMINOPHEN 325 MG TAB PO PRN (05:39)
[2025-05-24 06:26] LABS: Hematocrit (blood only) 30.2 % (37.0-47.0); Hemoglobin 9.3 g/dl (12.0-16.0); Mean Corpuscular Hemoglobin 26.1 pg (25.0-34.0); Mean Corpuscular Volume 84.8 fL (80.0-100.0); Platelet Count 176 K/uL (130-400); RDW Standard Deviation 53.2 fL (36.4-46.3); Red Blood Count 3.56 M/uL (4.20-5.40); White Blood Count 8.95 K/ul (4.8-10.8)
--- NOTE | 2025-05-24 07:38 | Obstetrical Progress Note ---
Date of Service May 24, 2025 Assessment & Plan (1) state: Plan PPD#1, routine care today, likely dc in AM Subjective Ambulation: ambulating normally Voiding: no voiding problems Passing Gas:: Yes Diet Tolerance:: regular diet Lochia:: Small Feeding Type:: breast feeding Physical Exam Constitutional WD/WN, vitals as above Eyes PERRL, conjunctivae normal, anicteric sclerae Neck normal visual inspection Respiratory normal respiratory effort and able to speak in complete sentences; no respiratory distress and no labored breathing Cardiovascular Rate/Rhythm: regular rate and regular rhythm Extremities: no edema Chest (Breasts) Chest: normal inspection of chest Gastrointestinal (Abdomen) Inspection/Auscultation: abdomen normal to inspection Soft, postgravid Psychiatric A+Ox3, euthymic affect Genitourinary OB Exam Abdomen: + fundal height Fundus: + firm and + relation to umbilicus (fundus just below umbilicus); not tender Results & Data Vital Signs (Past 12 Hours) Vital Signs Temp Pulse Pulse Resp BP BP Pulse Ox 05/24/25 04:00 98.1 F 75 16 119/79 100 05/24/25 00:30 98.2 F 97 H 18 109/73 96 05/23/25 23:59 117 H 130/82 05/23/25 23:43 108 H 119/66 05/23/25 23:29 105 H 120/69 05/23/25 23:13 100 H 123/71 05/23/25 22:59 82 116/69 05/23/25 22:44 97 H 113/71 05/23/25 22:28 113/73 05/23/25 22:14 103 H 102/70 05/23/25 21:59 93 H 106/69 05/23/25 21:57 97 H 98 05/23/25 21:52 115 H 99 05/23/25 21:51 18 05/23/25 21:51 18 05/23/25 21:47 94 H 100 05/23/25 21:46 100 H 116/70 05/23/25 21:42 89 100 05/23/25 21:37 106 H 100 05/23/25 21:36 96 H 90 05/23/25 21:32 100 05/23/25 21:32 103 H 05/23/25 21:32 96 H 117/74 05/23/25 21:30 18 05/23/25 21:30 18 05/23/25 21:27 98 05/23/25 21:27 91 H 05/23/25 21:27 99 H 91 05/23/25 21:22 90 100 05/23/25 21:17 99 H 100 05/23/25 21:16 86 112/54 L 05/23/25 21:12 113 H 100 05/23/25 21:09 99 H 89 L 05/23/25 21:07 86 99 05/23/25 21:02 89 100 05/23/25 21:01 93 H 113/67 05/23/25 21:00 18 05/23/25 21:00 18 05/23/25 20:57 98.2 F 81 18 100 05/23/25 20:52 84 98 05/23/25 20:47 100 05/23/25 20:47 86 05/23/25 20:47 93 H 118/71 05/23/25 20:42 81 99 05/23/25 20:37 97 H 99 05/23/25 20:32 97 05/23/25 20:32 108 H 05/23/25 20:32 100 H 118/73 05/23/25 20:27 106 H 100 05/23/25 20:22 96 H 100 05/23/25 20:17 104 H 100 05/23/25 20:16 110 H 113/66 05/23/25 20:12 101 H 100 05/23/25 20:07 102 H 99 05/23/25 20:02 101 H 108/63 100 05/23/25 20:00 18 05/23/25 20:00 18 05/23/25 19:57 102 H 100 05/23/25 19:52 92 H 100 05/23/25 19:47 91 H 98 05/23/25 19:46 91 H 100/58 L 05/23/25 19:42 92 H 100 O2 Del Method 05/24/25 04:00 Room Air 05/24/25 00:30 Room Air 05/23/25 23:59 05/23/25 23:43 05/23/25 23:29 05/23/25 23:13 05/23/25 22:59 05/23/25 22:44 05/23/25 22:28 05/23/25 22:14 05/23/25 21:59 05/23/25 21:57 05/23/25 21:52 05/23/25 21:51 05/23/25 21:51 05/23/25 21:47 05/23/25 21:46 05/23/25 21:42 05/23/25 21:37 05/23/25 21:36 05/23/25 21:32 05/23/25 21:32 05/23/25 21:32 05/23/25 21:30 05/23/25 21:30 05/23/25 21:27 05/23/25 21:27 05/23/25 21:27 05/23/25 21:22 05/23/25 21:17 05/23/25 21:16 05/23/25 21:12 05/23/25 21:09 05/23/25 21:07 05/23/25 21:02 05/23/25 21:01 05/23/25 21:00 05/23/25 21:00 05/23/25 20:57 05/23/25 20:52 05/23/25 20:47 05/23/25 20:47 05/23/25 20:47 05/23/25 20:42 05/23/25 20:37 05/23/25 20:32 05/23/25 20:32 05/23/25 20:32 05/23/25 20:27 05/23/25 20:22 05/23/25 20:17 05/23/25 20:16 05/23/25 20:12 05/23/25 20:07 05/23/25 20:02 05/23/25 20:00 05/23/25 20:00 05/23/25 19:57 05/23/25 19:52 05/23/25 19:47 05/23/25 19:46 05/23/25 19:42
--- NOTE | 2025-05-24 07:39 | Anesthesia Procedure Note ---
Date of Service May 24, 2025 Anesthesia Post Epidural Note Vital Signs Vital Signs: Temp Pulse Resp BP Pulse Ox O2 Del Method 36.7 C 75 16 119/79 100 Room Air 05/24/25 04:00 05/24/25 04:00 05/24/25 04:00 05/24/25 04:00 05/24/25 04:00 05/24/25 04:00 Notes Mental Status: alert / awake / arousable and participated in evaluation Patient Amnestic to Procedure: No Nausea / Vomiting: adequately controlled Pain: adequately controlled Airway Patency, RR, SpO2: stable & adequate BP & HR: stable & adequate Hydration State: stable & adequate Neuraxial Anesthesia: was administered and sensory block resolved Anesthetic Complications: no major complications apparent and Pt Satisfied with anesthetic care Epidural: Removed without complications and With tip intact
[2025-05-24] MEDS: PRENATAL VITAMIN 1 TAB PO SCH (08:01)
[2025-05-24] MEDS: DOCUSATE SODIUM 100 MG CAP PO SCH (08:01)
[2025-05-24] MEDS: IBUPROFEN 600 MG TAB PO PRN (08:01)
[2025-05-24 22:47] VITALS: RESP 16; O2SAT 97
[2025-05-25 05:02] VITALS: BP 110/69; PULSE 83; TEMP 98.1
[2025-05-25 06:26] LABS: Hematocrit (blood only) 27.6 % (37.0-47.0); Hemoglobin 8.6 g/dl (12.0-16.0)
--- NOTE | 2025-05-25 07:47 | Obstetrical Progress Note ---
Date of Service May 25, 2025 Assessment & Plan (1) state: Day 2 status post vaginal delivery. Patient doing well and stable for discharge. Subjective Ambulation: ambulating normally Voiding: no voiding problems Passing Gas:: Yes Diet Tolerance:: regular diet Lochia:: Moderate Physical Exam Constitutional WD/WN, vitals as above Respiratory normal respiratory effort; no respiratory distress and no labored breathing Cardiovascular Extremities: no calf tenderness Gastrointestinal (Abdomen) Inspection/Auscultation: abdomen normal to inspection; abdomen not distended Percussion/Palpation: abdomen soft; abdomen nontender, no guarding and abdomen not rigid Genitourinary OB Exam Abdomen: + fundal height Fundus: + firm and + relation to umbilicus (Below); not tender or not boggy Results & Data Vital Signs (Past 12 Hours) Vital Signs Temp Pulse Resp BP Pulse Ox O2 Del Method 05/25/25 04:30 36.7 C 83 16 110/69 97 Room Air 05/24/25 20:00 36.6 C 89 16 113/75 97 Room Air
== END 2025-05-25 14:22 | disposition home or self-care (01) | DRG 807 ==
LOC: 4S1 11:37 → 4E2 05-24 00:51